=== PATIENT | male | born 1970 | race Caucasian/White ===

== ENCOUNTER 2017-11-18 12:00 | Emergency (ER) | payer MEDICAID ==
[2017-11-18 12:26] LABS: MODE ROOM AIR; MetHgb Venous 0.1 %; Sample Type Blood venous; Site VENOUS LINE; Venous Fraction OxyHgb 74.9 %; Venous Oxygen Sat 75.7 mmHG (55.0-75.0); Venous Total Hemglobin 15.8 g/dl
[2017-11-18] MEDS: SOD CHLORIDE 0.9% 800 ML IV (12:27)
[2017-11-18] MEDS: ONDANSETRON 4 MG INJ IV ×2 (12:27→13:34)
[2017-11-18 12:33] LABS: ADD MAN DIFF? NO
[2017-11-18 12:39] LABS: WHITE BLOOD COUNT 7.1 10^3/ul (4.8-10.8)
[2017-11-18 12:39] LABS: BASOPHILS % 0.4 % (0.0-2.0); EOSINOPHILS # 0.1 10^3/ul (0.0-0.5); HEMATOCRIT 41.6 % (42.0-52.0); HEMOGLOBIN 14.8 g/dl (14.0-18.0); LYMPHOCYTES # 2.2 10^3/ul (0.8-2.9); LYMPHOCYTES % 31.3 % (15.0-51.0); MEAN CORPUSCULAR HGB CONC 35.6 g/dl (32.0-37.0); MEAN CORPUSCULAR VOLUME 92.9 fl (82.0-101.0); MEAN PLATELET VOLUME 10.1 fl (7.4-10.4); MONOCYTE # 0.6 10^3/ul (0.3-0.9); MONOCYTES % 8.4 % (0.0-11.0); NEUTROPHIL # 4.1 10^3/ul (1.6-7.5); NEUTROPHILS % 58.5 % (39.0-77.0); PLATELET COUNT 234 10^3/UL (140-415); RED BLOOD COUNT 4.48 10^6/ul (4.70-6.10); RED CELL DISTRIBUTION WIDTH 11.9 % (11.5-14.5)
[2017-11-18 12:58] LABS: ANION GAP 15 (8-16); BLOOD UREA NITROGEN 23 mg/dl (7-20); CALCIUM 10.1 mg/dl (8.4-10.2); CARBON DIOXIDE 27 mmol/L (21-31); CHLORIDE 100 mmol/L (97-110); CREATININE 1.02 mg/dl (0.61-1.24); GLUCOSE 335 mg/dl (70-220); MAGNESIUM 1.9 mg/dl (1.7-2.5); PHOSPHORUS 1.8 mg/dl (2.5-4.9); POTASSIUM 3.5 mmol/L (3.5-5.1); SODIUM 138 mmol/L (135-144)
[2017-11-18 13:10] LABS: TROPONIN-I < 0.010 ng/ml (0.000-0.120)
[2017-11-18] MEDS: SOD CHLORIDE 0.9% 1,000 ML IV (13:35)
== END 2017-11-18 14:23 | disposition home or self-care (01) ==
LOC: E/R 12:00
DX: I10 Essential (primary) hypertension (principal); T67.5XXA Heat exhaustion, unspecified, initial encounter; E11.65 Type 2 diabetes mellitus with hyperglycemia
CPT/HCPCS: 36415; 71045; 80048; 82803; 82962; 83735; 84100; 84484; 85025; 93005; 96374; 96376; 99285-25